=== PATIENT | female | born 1970 | race Caucasian/White ===

== ENCOUNTER 2016-06-04 18:21 | Emergency (ER) | payer MEDICAID ==
[~2016-06-04] VITALS: Ht 160 cm; Wt 54.4 kg
[2016-06-04] MEDS ORDERED: HYDROCODONE/APAP 5/325MG 1 EACH TABLET ONE (18:36)
[2016-06-04] MEDS ORDERED: HYDROCODONE/APAP 5/325MG 1 EACH TABLET PO ONE (19:00)
[2016-06-04] MEDS ORDERED: MORPHINE SULFATE INJ 2 MG/ML DISP.SYRIN IV ONE (20:30)
[2016-06-04] MEDS ORDERED: ONDANSETRON HCL/PF - ER 4 MG/2 ML VIAL IV ONE (20:30)
[2016-06-04 21:29] LABS: BASOPHILS % (AUTO) 0.2 % (0.0-2.0); DIFF TOTAL % 100 %; EOSINOPHILS % (AUTO) 0.3 % (0.0-6.0); HEMATOCRIT 39 % (33-45); HEMOGLOBIN 13.6 g/dL (11.5-14.8); LYMPHOCYTES # (AUTO) 1.5 /CMM (0.8-4.8); LYMPHOCYTES % (AUTO) 10.3 % (20.0-44.0); MEAN CORPUSCULAR HEMOGLOBIN 30 PG (26.0-33.0); MEAN CORPUSCULAR HGB CONC 35 g/dl (31.0-36.0); MEAN CORPUSCULAR VOLUME 87 fL (82-100); MONOCYTES # (AUTO) 0.5 /CMM (0.1-1.30); MONOCYTES % (AUTO) 3.1 % (2.0-12.0); NEUTROPHILS # (AUTO) 12.5 /CMM (1.8-8.9); NEUTROPHILS % (AUTO) 86.1 % (43.0-81.0); PLATELET COUNT (AUTO) 280 /CMM (150-450); RED BLOOD CELL COUNT(AUTO) 4.51 MIL/uL (4.0-5.2); WHITE BLOOD COUNT (AUTO) 14.5 K/uL (4.3-11.0)
[2016-06-04 21:38] LABS: CALCIUM, SERUM 9.2 mg/dL (8.5-10.1); CREATININE 0.3 mg/dL (0.6-1.3); POTASSIUM 3.9 mmol/L (3.5-5.1)
[2016-06-04 21:42] LABS: INR 0.96 (0.87-1.13); PROTHROMBIN TIME 10.1 SECS (9.5-12.7)
[2016-06-04 21:53] VITALS: BP 120/81
[2016-06-04 22:00] VITALS: BP 120/81
[2016-06-04] MEDS ORDERED: HYDROCODONE/APAP 5/325MG 1 EACH TABLET PO PRN ×2 (22:00→22:15)
[2016-06-04] MEDS ORDERED: Z GUARD REMEDY 2 OZ OINT TP PRN ×2 (22:00→22:15)
[2016-06-04] MEDS ORDERED: MAGNESIUM HYDROXIDE 30 ML UDC PO PRN ×2 (22:00→22:15)
[2016-06-04] MEDS ORDERED: ONDANSETRON HCL/PF 4 MG/2 ML VIAL IVP PRN ×2 (22:00→22:15)
[2016-06-04] MEDS ORDERED: ZOLPIDEM TARTRATE 5 MG TABLET PO PRN ×2 (22:00→22:15)
[2016-06-04] MEDS ORDERED: IV NS 0.9% 1,000 ML IV PRN ×2 (22:00→22:15)
[2016-06-04] MEDS ORDERED: ACETAMINOPHEN 325 MG TABLET PO PRN ×2 (22:00→22:15)
[2016-06-04] MEDS ORDERED: MORPHINE SULFATE INJ 2 MG/ML DISP.SYRIN IV PRN ×2 (22:30→22:45)
[2016-06-05] MEDS ORDERED: MORPHINE SULFATE INJ 2 MG/ML DISP.SYRIN ONE (00:42)
[2016-06-05] MEDS ORDERED: ONDANSETRON HCL/PF 4 MG/2 ML VIAL ONE (00:51)
[2016-06-05] MEDS ORDERED: PANTOPRAZOLE 40 MG TABLET.DR PO SCH ×2 (07:30)
== END 2016-06-04 21:34 | disposition other institution (70) ==
LOC: ER 18:22 → UNDOADMIN 21:43 → MEDSG2 21:43 → UNDOADMIN 06-05 00:40 → MEDSG2 06-05 00:40
DX: S82.302A Unspecified fracture of lower end of left tibia, initial encounter for closed fracture (principal); S82.832A Other fracture of upper and lower end of left fibula, initial encounter for closed fracture; S82.64XA Nondisplaced fracture of lateral malleolus of right fibula, initial encounter for closed fracture; W01.0XXA Fall on same level from slipping, tripping and stumbling without subsequent striking against object, initial encounter; Y93.89 Activity, other specified; Y92.89 Other specified places as the place of occurrence of the external cause; Y99.8 Other external cause status
CPT/HCPCS: 29515 ×2; 36415; 73590; 73600; 73610; 80048; 83036; 85025; 85610; 85730; 93005; 99285; A4606; Z7610; J2270; J2405

== ENCOUNTER 2016-12-21 13:03 | Emergency (ER) | payer MEDICAID ==
[~2016-12-21] VITALS: Ht 157.5 cm; Wt 49.9 kg
[2016-12-21 13:03] VITALS: BP 113/62
[2016-12-21] MEDS ORDERED: HYDROCODONE/APAP 5/325MG 1 EACH TABLET PO ONE (13:30)
[2016-12-21] MEDS ORDERED: LIDOCAINE HCL/PF 1% 30 ML VIAL TP ONE (13:30)
[2016-12-21] MEDS ORDERED: HYDROCODONE/APAP 5/325MG 1 EACH TABLET ONE (13:43)
[2016-12-21] MEDS ORDERED: LIDOCAINE HCL/PF 1% 30 ML SDV ONE (13:43)
[2016-12-21] MEDS ORDERED: IBUPROFEN 600 MG TABLET PO ONE (15:03)
[2016-12-21] MEDS ORDERED: IBUPROFEN 200 MG TABLET ONE (15:05)
[2016-12-21] MEDS ORDERED: IBUPROFEN 400 MG TABLET PO ONE (15:30)
== END 2016-12-21 16:16 | disposition home or self-care (01) ==
LOC: ER 13:06
DX: L60.0 Ingrowing nail (principal)
CPT/HCPCS: 11730; A4606; A6402; J3490; Z7610

== ENCOUNTER 2016-12-24 19:06 | Emergency (ER) | payer MEDICAID ==
[~2016-12-24] VITALS: Ht 152.4 cm; Wt 49.9 kg
[2016-12-24 19:06] VITALS: BP 107/76
--- NOTE | 2016-12-24 19:55 | NUR ---
WOUND CARE PROVIDED.
== END 2016-12-24 20:04 | disposition home or self-care (01) ==
LOC: ER 19:08
DX: Z48.00 Encounter for change or removal of nonsurgical wound dressing (principal)
CPT/HCPCS: 99281; A4606; Z7610; Z7502

== ENCOUNTER 2020-07-11 17:51 | Emergency (ER) | payer MEDICAID ==
[~2020-07-11] VITALS: Ht 154.9 cm; Wt 63.5 kg
--- NOTE | 2020-07-11 17:51 | NUR ---
PT BIBRA 860 C/O BILATERAL WRIST INJURY S/P GLF. PT IS AAOX4, NOT IN RESPIRATORY DISTRESS, V/S STABLE, KEPT RESTED AND COMFORTABLE. WILL CONTINUE TO MONITOR.
--- NOTE | 2020-07-11 18:19 | NUR ---
SEEN AND EXAMINED BY JOJO BUTLER.
[2020-07-11] MEDS ORDERED: ONDANSETRON HCL/PF 4 MG/2 ML VIAL ONE (18:21)
[2020-07-11] MEDS ORDERED: HYDROMORPHONE 1 MG/1 ML DISP.SYRIN ONE ×2 (18:22→21:42)
--- NOTE | 2020-07-11 18:25 | NUR ---
IV LINE ESTABLISHED G18 L AC.
[2020-07-11] MEDS ORDERED: HYDROMORPHONE 1 MG/1 ML DISP.SYRIN IV ONE ×2 (18:30→22:00)
[2020-07-11] MEDS ORDERED: ONDANSETRON HCL/PF 4 MG/2 ML VIAL IVP ONE (18:30)
[2020-07-11] MEDS ORDERED: MORPHINE SULFATE INJ 2 MG/ML DISP.SYRIN IV ONE (18:30)
[2020-07-11] MEDS ORDERED: IV NS 0.9% 1,000 ML BAG IV ONE (18:30)
[2020-07-11] MEDS ORDERED: TDAP [DIPH/PERTUSSIS/TET] 0.5 ML VIAL IM ONE ×2 (18:30→18:40)
[2020-07-11 18:40] LABS: BASOPHILS % (AUTO) 0.3 % (0.0-2.0); EOSINOPHILS % (AUTO) 1.6 % (0.0-6.0); HEMATOCRIT 35 % (33-45); HEMOGLOBIN 11.5 g/dL (11.5-14.8); LYMPHOCYTES # (AUTO) 2.6 /CMM (0.8-4.8); LYMPHOCYTES % (AUTO) 31.7 % (20.0-44.0); MEAN CORPUSCULAR HGB CONC 33 g/dl (31.0-36.0); MEAN CORPUSCULAR VOLUME 91 fL (82-100); MONOCYTES # (AUTO) 0.6 /CMM (0.1-1.30); MONOCYTES % (AUTO) 7.1 % (2.0-12.0); NEUTROPHILS # (AUTO) 4.9 /CMM (1.8-8.9); NEUTROPHILS % (AUTO) 59.3 % (43.0-81.0); PLATELET COUNT (AUTO) 300 /CMM (150-450); RED BLOOD CELL COUNT(AUTO) 3.84 MIL/uL (4.0-5.2); WHITE BLOOD COUNT (AUTO) 8.2 K/uL (4.3-11.0)
[2020-07-11 18:44] LABS: CREATININE 0.3 mg/dL (0.6-1.3); POTASSIUM 3.7 mmol/L (3.5-5.1)
[2020-07-11 18:49] LABS: CALCIUM, SERUM 8.3 mg/dL (8.5-10.1)
[2020-07-11 18:50] LABS: ALBUMIN 3.6 g/dL (3.4-5.0); BILIRUBIN,TOTAL 0.2 mg/dL (0.2-1.0)
--- NOTE | 2020-07-11 18:58 | NUR ---
PROFESSOR OF GENETICS AT BEDSIDE FOR XRAY.
--- NOTE | 2020-07-11 19:43 | NUR ---
TECH AT BEDSIDE FOR RIGHT ARM SUGAR TONG SPLINT ANDLEFT ARM POSTERIOR SHORT DUE TO INTERFERENCE WITH IV.
--- NOTE | 2020-07-11 20:10 | NUR ---
COVID SWAB COLLECTED AND SENT TO THE LAB.
--- NOTE | 2020-07-11 22:06 | NUR ---
BETTINA BUTLER TALKING TO DR. REESE (ORTHO) REGARDING PT.
--- NOTE | 2020-07-11 23:01 | NUR ---
CALL BACK [phone] MD CHAVEZ
--- NOTE | 2020-07-11 23:49 | NUR ---
SPOKE TO SAMY (BERTIN) STATES NO HAND SURGEON AT [facility] AND TRANSFER PT FOR HLOC.
--- NOTE | 2020-07-12 00:14 | NUR ---
SPOKE TO RAYMUNDO FROM [facility] CASE PRESENTED REQUESTED, NO BED AVAILABLE AT THIS TIME.
--- NOTE | 2020-07-12 00:29 | NUR ---
CALLED [facility] FOR HLOC SPOKE TO ROLANDO. WILL FAXED FACESHEET AN XRAY RESULTS REQUESTED TO .
--- NOTE | 2020-07-12 00:39 | NUR ---
CASE PRESENTED TO [facility] SPOKE TO NORMA. WILL FAXED FACESHEET, CLINICAL, XRAY'S AND COVID RESULT REQUESTED TO .
--- NOTE | 2020-07-12 00:54 | NUR ---
EFRAIN MARSHALL FROM [facility] REFUSE TO ACCEPT PT.
--- NOTE | 2020-07-12 00:57 | NUR ---
[facility] CALLED FOR HLOC TRANSFER SPOKE TO [facility] [employer] STATES NO HAND SURGEON AVAILABLE.
--- NOTE | 2020-07-12 01:01 | NUR ---
[facility] CALLED FOR HLOC TRANSFER CASE PRESENTED REQUESTED. WILL FAX FACESHEET, CLINICAL, XRAYS AND COVID RESULT TO .
--- NOTE | 2020-07-12 01:44 | NUR ---
RYAN DECLINED PT PER AN AT TRANSFER CENTER.
--- NOTE | 2020-07-12 01:47 | NUR ---
SPOKE TO NOMRA FROM [facility] STATES UNABLE TO ACCEPT PT AT THIS TIME BUT WILL KEEP CASE OPEN AND RE-EVAL FOR TOMORROW IF THEY ARE ABLE TO ACCEPT PT.
[2020-07-12] MEDS ORDERED: HYDROMORPHONE 1 MG/1 ML DISP.SYRIN ONE (01:55)
[2020-07-12] MEDS ORDERED: ONDANSETRON HCL/PF 4 MG/2 ML VIAL ONE (01:55)
--- NOTE | 2020-07-12 03:13 | NUR ---
CASE PRESENTED TO [facility], NO BEDS AVAILABLE AT THIS TIME.
--- NOTE | 2020-07-12 06:14 | NUR ---
DR. RIVER CALLED REQUESTING TO SPEAK TO BETTINA SANDERSON.
--- NOTE | 2020-07-12 06:44 | NUR ---
DR. RIVER CALLED REQUESTING TO SPEAK TO BETTINA SANDERSON.
[2020-07-12] MEDS ORDERED: PROPOFOL 20 ML IV ONE (07:13)
[2020-07-12] MEDS ORDERED: FENTANYL PF 100MCG/2ML AMPUL ONE (07:13)
[2020-07-12] MEDS ORDERED: LIDOCAINE 1%-EPI 1:100,000 20 ML VIAL ONE (07:14)
--- NOTE | 2020-07-12 07:33 | NUR ---
SPOKED TO [facility]. WILL CALL BACK FOR PT STATUS [phone]
--- NOTE | 2020-07-12 07:37 | NUR ---
CALLED RADIOLOGY FOR STAT XRAY.
--- NOTE | 2020-07-12 07:44 | NUR ---
LEFT WRIST AND RIGHT WRIST REDUCTION COMPLETED BY DR. REESE, PATIENT TOLERATED PROCEDURE WELL.
--- NOTE | 2020-07-12 07:46 | NUR ---
XRAY AT BEDSIDE
[2020-07-12] MEDS ORDERED: PROPOFOL 200 MG/20 ML VIAL IV ONE (08:00)
[2020-07-12] MEDS ORDERED: FENTANYL PF 100MCG/2ML AMPUL IV ONE (08:00)
--- NOTE | 2020-07-12 08:09 | NUR ---
PATIENT RESTING, A/OX4, BREATHING EVEN AND UNLABORED, NO SOB NOTED. NEEDS ATTENDED.
[2020-07-12] MEDS ORDERED: HYDR-4303 PO (08:11)
--- NOTE | 2020-07-12 08:35 | NUR ---
PATIENT'S BILATERAL UPPER EXTREMITIES + CMS. PATIENT A/OX4, 100% ON ROOM AIR WITH NO DISTRESS NOTED. AT BEDSIDE. DR. SANDERSON AT BEDSIDE FOR RE-EVALUATION AND EXPLAINED AFTERCARE INSTRUCTIONS.
--- NOTE | 2020-07-12 09:26 | NUR ---
PATIENT A//OX4, BREATHING EVEN AND UNLABORED, NO SOB NOTED, AMBULATORY WITH ASSIST. SPLINT INTACT ON BILATERAL UPPER EXTREMITIES. IV removed. Catheter intact and site benign. Pressure and 4x4 applied to site. No bleeding noted. Patient discharged to home in stable condition. Written and verbal after care instructions given. Patient verbalizes understanding of instruction. Assisted to the car via wheelchair.
[2020-07-12 09:28] VITALS: BP 123/65
== END 2020-07-12 09:28 | disposition home or self-care (01) ==
LOC: ER 17:55
DX: S52.571A Other intraarticular fracture of lower end of right radius, initial encounter for closed fracture (principal); S52.502A Unspecified fracture of the lower end of left radius, initial encounter for closed fracture; S52.612A Displaced fracture of left ulna styloid process, initial encounter for closed fracture; S00.81XA Abrasion of other part of head, initial encounter; S80.02XA Contusion of left knee, initial encounter; S52.611A Displaced fracture of right ulna styloid process, initial encounter for closed fracture; W01.0XXA Fall on same level from slipping, tripping and stumbling without subsequent striking against object, initial encounter; Y93.01 Activity, walking, marching and hiking; Y92.89 Other specified places as the place of occurrence of the external cause; Z20.822 Contact with and (suspected) exposure to COVID-19
CPT/HCPCS: 25605; 36415; 73090 ×2; 73100 ×2; 73110 ×2; 73564; 73590; 80048; 80076; 85025; 85730; 87081; 87426; 90471; 90715; 96361; 96374; 96375; 96376; 99285; C9803; J1170 ×3; J2405 ×2; J2704; J3010; J3490; J7030 ×2; G0500

== ENCOUNTER 2022-01-02 14:21 | Emergency (ER) | payer MEDICAID ==
[~2022-01-02] VITALS: Ht 154.9 cm; Wt 56.7 kg
[~2022-01-02 14:21] MED LIST: HYDR-4303 PO
--- NOTE | 2022-01-02 14:54 | NUR ---
vaginal cyst x 2 weeks
[2022-01-02] MEDS ORDERED: CLIN300C12 PO (15:28)
[2022-01-02] MEDS ORDERED: CLINDAMYCIN HCL 150 MG CAPSULE ONE (15:36)
[2022-01-02] MEDS: CLINDAMYCIN HCL 150 MG CAPSULE PO ONE (15:38)
--- NOTE | 2022-01-02 15:40 | NUR ---
Patient discharged to home in stable condition. Written and verbal after care instructions given. Patient verbalizes understanding of instruction.
[2022-01-02 15:41] VITALS: BP 123/74
== END 2022-01-02 15:41 | disposition home or self-care (01) ==
LOC: ER 14:22
DX: N75.0 Cyst of Bartholin's gland (principal); Z90.710 Acquired absence of both cervix and uterus; Z79.899 Other long term (current) drug therapy